=== PATIENT | female | born 1975 | race African-American/Black ===

== ENCOUNTER 2025-07-11 09:32 | Outpatient (CLI) | payer BC | END 2025-07-11 09:33 | disposition home or self-care (01) | LOC: CSHMAMMO 09:32 | PROVIDERS: ATTEND Family Medicine | DX: R92.30 Dense breasts, unspecified (principal); N63.31 Unspecified lump in axillary tail of the right breast | CPT/HCPCS: 19083; 77066; 88305; A4648; G0279 ==